=== PATIENT | female | born 1990 | race African-American/Black ===

== ENCOUNTER 2021-01-06 01:39 | Emergency (ER) | payer OTHER ==
[~2021-01-06] VITALS: Ht 170.2 cm; Wt 103.5 kg
[2021-01-06] MEDS ORDERED: NAPROXEN 250 MG TABLET PO ONE (03:00)
[2021-01-06] MEDS ORDERED: MetroNIDAZOLE 250 MG TABLET PO ONE (03:00)
[2021-01-06 03:21] VITALS: BP 119/68
== END 2021-01-06 04:25 | disposition home or self-care (01) ==
LOC: EMS 01:42
DX: N76.0 Acute vaginitis (principal); F12.90 Cannabis use, unspecified, uncomplicated
CPT/HCPCS: 99283